=== PATIENT | female | born 1970 ===

== ENCOUNTER 2023-09-03 20:38 | Emergency (ER) | payer BC, SELFPAY ==
[2023-09-03 20:46] VITALS: BP 110/65
[2023-09-03 21:05] LABS: % Basophils 0.9 % (0-2); % Eosinophils 1.3 % (0-6); % Immature Granulocytes 0.2 % (0-0.5); % Monocytes 9.9 % (1.7-9.3); % Neutrophils 43.7 % (42.2-75.2); Absolute Basophils 0.1 10^3/uL (0-0.2); Absolute Eosinophils 0.1 10^3/uL (0-0.7); Absolute Lymphocytes 2.8 10^3/uL (1.2-3.4); Absolute Monocytes 0.6 10^3/uL (0.1-0.6); Absolute Neutrophils 2.8 10^3/uL (1.4-6.5); Hematocrit 36.7 % (37.0-47.0); Mean Corp Hgb Conc. 35.4 g/dL (33.0-37.0); Mean Corpuscular Hgb 32.3 pg (27.0-31.0); Mean Corpuscular Volume 91.1 fL (81.0-99.0); Mean Platelet Volume 10.2 fL (7.4-10.4); Nucleated Red Blood Cells % 0 %; Platelet Count 264 10^3/uL (130-400); Red Blood Cell Count 4.03 10^6/uL (4.20-5.40); Red Cell Dist. Width 13.1 % (11.5-14.5); White Blood Cell Count 6.4 10^3/uL (4.8-10.8)
[2023-09-03 21:06] LABS: Urine Albumin Negative (Neg - Trace); Urine Bilirubin Negative (Negative); Urine Character Clear (Clear); Urine Color Yellow; Urine Glucose Negative (Negative); Urine Ketone Negative (Negative); Urine Leukocyte Negative (Negative); Urine Nitrite Negative (Negative); Urine Occult Blood Negative (Negative); Urine Specific Gravity 1.015 (<1.030); Urine Urobilinogen Negative (Neg - 1+)
[2023-09-03 21:23] LABS: ALT (SGPT) 21 U/L (0-35); AST (SGOT) 30 U/L (14-36); Albumin 4.7 g/dl (3.5-5.0); Alkaline Phosphatase 38 U/L (38-126); Blood Urea Nitrogen 11 mg/dl (7-17); Calcium 10.1 mg/dl (8.4-10.2); Carbon Dioxide 25 mmol/L (22-30); Chloride 101 mmol/L (98-107); Glucose 90 mg/dl (70-99); Potassium 3.7 mmol/L (3.5-5.1); Sodium 135 mmol/L (135-145); Total Bilirubin 0.3 mg/dl (0.2-1.3); Total Protein 7.3 g/dl (6.3-8.2); eGFR > 60.00
[2023-09-03 21:24] LABS: Lipase 131 U/L (23-300)
[2023-09-03] MEDS: LET TOPICAL ANESTHETIC GEL 3 ML TOPICAL (21:44)
--- NOTE | 2023-09-03 22:53 | ED.GENMED ---
History of Present Illness
General
Chief Complaint: Abdominal Pain
Source: patient
Exam Limitations: none
Time Seen by Provider: 09/03/23 22:47
Travel History
Have you had any contact with someone who has COVID-19?: No
Do you have any symptoms of coronavirus? Fever > 100 degrees, chills, cough, shortness of breath, sore throat, loss of taste or smell, muscle aches, or headache?: No
History of Present Illness
History of Present Illness:
See MDM
Past History
Past History
ED Past Medical History: Cancer (Colon)
ED Past Surgical History: Bowel resection
Social History
Tobacco: Non-smoker
Alcohol: None
Phy Exam
Physical Exam
Physical Exam:
See MDM
Course
Orders/Labs/Results
Orders:
Orders
09/03/23 20:52
Electrocardiogram (*1) Urgent
Reason for Study: Abdominal Pain
EKG- Treatment ONCE
IV Insert/Care/Rem.- Treatment PRN
09/03/23 20:56
Complete Blood Count/With Diff Urgent
Comprehensive Metabolic Panel Urgent
Lipase Urgent
Urinalysis Reflex To Culture Urgent
Date Specimen was Collected: 09/03/23
Time Specimen was Collected: 20:52
09/03/23 21:43
Lidocaine/Epinephrine/Tetracai [Let Topical Anesthetic Gel] 3 ml .ROUTE .STK-MED ONE
09/03/23 21:44
Lidocaine/Epinephrine/Tetracai [Let Topical Anesthetic Gel] 3 ml TOPICAL NOW STA
09/03/23 22:52
0.9% Sodium Chloride 1000 ml [Nss] 1,000 ml IV BOLUS
Ketorolac [Toradol] 30 mg IV NOW STA
Lorazepam [Ativan] 0.5 mg IV NOW STA
09/03/23 22:53
CT Abd/pelvis W Iv Cont Urgent
Comment:
Reason For Exam: RLQ pain
09/04/23 00:14
Diphenhydramine [Benadryl] 12.5 mg IV NOW STA
Morphine Sulfate 4 mg IV NOW STA
Abnormal Lab Results
09/03/23
20:56
RBC 4.03 L 10^6/uL
(4.20-5.40)
Hct 36.7 L %
(37.0-47.0)
MCH 32.3 H pg
(27.0-31.0)
Monocytes % 9.9 H %
(1.7-9.3)
09/03/23 20:56
09/03/23 20:56
Vital Signs
Initial and Last Documented VS:
Initial Vital Signs
Temp Pulse Resp BP Pulse Ox
98 F 85 20 110/65 98
09/03/23 20:46 09/03/23 20:46 09/03/23 20:46 09/03/23 20:46 09/03/23 20:46
Last Documented Vital Signs
Temp Pulse Resp BP Pulse Ox
98 F 84 20 114/51 99
09/03/23 20:46 09/04/23 00:28 09/03/23 20:46 09/04/23 00:28 09/04/23 00:28
MDM/Problems Addressed
Differential Diagnosis Includes:
HPI and MDM Narrative:
52-year-old female presenting with 1 week of vague abdominal pain. Sometimes pain is worse with food intake. She believes it is mostly ran she is now noticing that the pain is worse in the right lower quadrant for the past 24 hours. She has a
history of ovarian cyst is different. She is intermittently nauseous
On exam, she is somewhat uncomfortable appearing. She has point tenderness to the right lower quadrant. Will obtain CT
Physical exam
General: Lying in bed but appears somewhat uncomfortable
HEENT: protecting airway
Neck: appears supple
CV: No evidence of cyanosis
Resp: No accessory muscle use
Abd: Non-distended. Point tenderness to right lower quadrant
Extremities: No deformities
Neuro: alert
Psych: Normal affect
Skin: Intact
Problems Addressed including Acute and Chronic Conditions affecting care:
1. Abdominal pain
Acuity: acute
Prognosis: stable
Details: Given the right lower quadrant location, will obtain CT to rule out acute appendicitis
2. Anxiety
Acuity: acute
Prognosis: stable
Details: Patient requesting medicine. Will give Ativan
Updates
CT negative for acute pathology. We discussed possible viral infection. We discussed the incidental findings and return precautions
Differential Diagnosis (but not limited to): Ovarian cyst, acute appendicitis, colitis
Testing considered: Pelvic ultrasound
Drug therapy (if applicable): OTC meds, please see d/c instruction regarding Rx drugs
Amount and/or Complexity of Data Reviewed
Clinical info obtained from: Patient
External data reviewed: N/A
Labs I independently reviewed (but not limited to): White blood cell count normal
Radiology: The CT scan was personally and independently reviewed. In addition, official CT report reviewed.
Pulse Ox: not hypoxic
EKG independently reviewed: N/A
Punch Hand: N/A
Critical Care: N/A
Risk of Complication:
Social Determinants of health: Good social support
Discussed with other providers: N/A
Escalation of Care includes Admit/Obs: After being observed in the Emergency Department, pt stable for discharge.
Occasional wrong word or 'sound a like' substitutions may have occurred due to the inherent limitations of voice recognition software. Read the chart carefully and recognize, using context, where substitutions have occurred.
*Critical Care Note
Total Time (30-74mins, 75-104mins- exclusive of procedures): Not Applicable
ED Attending Note
-
Portions of this chart may have been created with voice recognition software.� Occasional wrong word or��sound alike� substitutions may have occurred due to the inherent limitations of voice recognition software.
Discharge Plan
Departure
Patient Disposition: Home (Routine Discharge)
Date of Disposition: 09/04/23
Time of Disposition: 00:32
Patient with high blood pressure during this ER visit?: No
Discharge Problem:
Abdominal pain
Instructions: Abdominal Pain
Referrals:
Milla Rosales MD [Family Provider] -
Activity Restrictions/Additional Instructions:
Please return for any worsening symptoms.
You may return at any time if you have further concerns.
Please follow up with your doctor at the first available appointment, preferably this week.
Thank you for choosing [facility].
Interventions
Interventions:
*Risk Screen - Suicide Last Done: 09/03/23 20:46
*General Assessment Last Done: 09/03/23 20:46
*Neglect/Abuse Screening Last Done: 09/03/23 20:46
ED- Fall Risk Assessment Last Done: 09/03/23 20:46
*ED COVID-19 Vaccine History Last Done: 09/03/23 20:46
HX-Wwcaii-Blxqcjmqvf Assessment Last Done: 09/03/23 21:56
Discharge Date and Time
Print Language: Monegasque
[2023-09-03] MEDS: ATIVAN 0.5 MG IV (23:02)
[2023-09-03] MEDS: TORADOL 30 MG IV (23:03)
[2023-09-03] MEDS: NSS 1000 IV (23:03)
[2023-09-03 23:06] VITALS: BP 108/54
[2023-09-04] MEDS: BENADRYL 12.5 MG IV (00:24)
[2023-09-04] MEDS: MORPHINE SULFATE 4 MG IV (00:25)
[2023-09-04 00:28] VITALS: BP 114/51
== END 2023-09-04 00:55 | disposition home or self-care (01) ==
LOC: EMR 20:38
PROVIDERS: Emergency Medicine; EMERGENCY PHYSICIAN Student in an Organized Health Care Education/Training Program; FAMILY PHYSICIAN Internal Medicine
DX: R10.9 Unspecified abdominal pain (principal)
CPT/HCPCS: 99285; 96374; 96375 ×3; 96361; 74177; 80053; 81003; 83690; 85025; 93005; 99284; Q9967

== ENCOUNTER 2023-09-10 17:20 | Emergency (ER) | payer BC, SELFPAY ==
[2023-09-10 17:36] VITALS: BP 122/66
[2023-09-10] MEDS: ZOFRAN ODT (ORALLY DISINTEGRATING) 4 MG PO (17:40)
[2023-09-10 18:02] LABS: % Basophils 0.3 % (0-2); % Immature Granulocytes 0.4 % (0-0.5); % Lymphocytes 29.1 % (20.5-51.1); % Monocytes 7.3 % (1.7-9.3); % Neutrophils 61.9 % (42.2-75.2); Absolute Basophils 0.1 10^3/uL (0-0.2); Absolute Eosinophils 0.2 10^3/uL (0-0.7); Absolute Immature Granulocytes 0.1 10^3/uL (0-0.05); Absolute Lymphocytes 5.1 10^3/uL (1.2-3.4); Absolute Monocytes 1.3 10^3/uL (0.1-0.6); Absolute Neutrophils 10.8 10^3/uL (1.4-6.5); Hematocrit 40.5 % (37.0-47.0); Hemoglobin 14.5 g/dL (12.0-16.0); Mean Corp Hgb Conc. 35.8 g/dL (33.0-37.0); Mean Corpuscular Hgb 32.5 pg (27.0-31.0); Mean Corpuscular Volume 90.8 fL (81.0-99.0); Mean Platelet Volume 10.4 fL (7.4-10.4); Nucleated Red Blood Cells % 0 %; Platelet Count 346 10^3/uL (130-400); Red Blood Cell Count 4.46 10^6/uL (4.20-5.40); White Blood Cell Count 17.4 10^3/uL (4.8-10.8)
[2023-09-10 18:13] LABS: HCG, Serum Qualitative Screen Negative
[2023-09-10 18:17] LABS: ALT (SGPT) 21 U/L (0-35); AST (SGOT) 29 U/L (14-36); Albumin 4.8 g/dl (3.5-5.0); Alkaline Phosphatase 55 U/L (38-126); Blood Urea Nitrogen 12 mg/dl (7-17); Calcium 10.7 mg/dl (8.4-10.2); Carbon Dioxide 18 mmol/L (22-30); Chloride 100 mmol/L (98-107); Glucose 111 mg/dl (70-99); Potassium 4.3 mmol/L (3.5-5.1); Sodium 132 mmol/L (135-145); Total Bilirubin 0.6 mg/dl (0.2-1.3); Total Protein 7.4 g/dl (6.3-8.2); eGFR > 60.00
[2023-09-10 18:18] LABS: Lipase 85 U/L (23-300)
--- NOTE | 2023-09-10 23:34 | ED.GENMED ---
History of Present Illness
General
Chief Complaint: Abdominal Pain
Source: patient and family
Exam Limitations: none
Time Seen by Provider: 09/10/23 23:22
Nursing documentation reviewed up to this point in time: agreed with
Travel History
Have you had any contact with someone who has COVID-19?: No
Do you have any symptoms of coronavirus? Fever > 100 degrees, chills, cough, shortness of breath, sore throat, loss of taste or smell, muscle aches, or headache?: No
History of Present Illness
History of Present Illness:
Pleasant 52-year-old female, in tears complaining of abdominal pain that has been progressively worsening for the last 2 weeks. She states that she was seen in the emergency department for similar pain a week ago. She reports that the pain is now
mostly in her upper left abdomen. She denies fever or chills. History is limited as patient is very anxious and as a result of a poor historian
Past History
Past History
ED Past Medical History: Cancer (Colon)
ED Past Surgical History: Bowel resection
Social History
Tobacco: Non-smoker
Alcohol: None
Phy Exam
General Physical Exam
General Presentation: moderate distress
General age: appears stated age
General Skin: warm and dry
General Habitus: normal
General Mental: alert, anxious and tearful
General Hydration: appears well hydrated
Cardiovascular Exam
Cardiovascular Exam: regular rate/rhythm, no edema and no murmur
Pulmonary Exam
Pulmonary Exam: lungs clear and no respiratory distress
Gastrointestinal Exam
Gastrointestinal Exam: normal bowel sounds, non distended and guarding
Palpation: left upper quadrant: Minimal tenderness
Neurological Exam
Neurological Exam: alert and oriented x3
Musculoskeletal Exam
Musculoskeletal Exam: full ROM and no edema
Skin Exam
Skin Exam: normal color and warm/dry
Psychiatric Exam
Psychiatric Exam: agitated and anxious
Course
Orders/Labs/Results
Orders:
Orders
09/10/23 17:38
Test Result ONCE
09/10/23 17:40
Ondansetron Orally Disint [Zofran Odt (Orally Disintegrating)] 4 mg .ROUTE .STK-MED ONE
Ondansetron Orally Disint [Zofran Odt (Orally Disintegrating)] 4 mg PO NOW STA
09/10/23 17:46
Complete Blood Count/With Diff Urgent
Comprehensive Metabolic Panel Urgent
HCG, Serum Qualitative Screen Urgent
Lipase Urgent
09/10/23 23:22
Procalcitonin Urgent
PCT Algorithmm Indication: Sepsis
Troponin I Urgent
Urinalysis Reflex To Culture Urgent
Date Specimen was Collected: 09/11/23
Time Specimen was Collected: 02:21
09/10/23 23:23
EKG- Treatment ONCE
09/10/23 23:29
Mag Hydrox/Al Hydrox/Simeth [Maalox] 30 ml Phenobarb/Hyoscy/Atropine/Scop [] 10 ml Viscous Lidocaine 2% [Xylocaine Viscous Cup] 10 ml PO NOW
09/10/23 23:30
Blood Culture Q30M
MADELINE Source: Blood/Venous
Specimen Description:
Iohexol [Omnipaque] See Protocol PO NOW STA
09/10/23 23:42
Mag Hydrox/Al Hydrox/Simeth [Maalox] 30 ml .ROUTE .STK-MED ONE
Phenobarb/Hyoscy/Atropine/Scop [] 10 ml .ROUTE .STK-MED ONE
09/10/23 23:43
Viscous Lidocaine 2% [Xylocaine Viscous Cup] 15 ml .ROUTE .STK-MED ONE
09/11/23
Electrocardiogram (*1) Stat
Other Reason for Exam: SEPSIS
Comment: DONE
09/11/23 00:00
CT Abd/pel W Iv And Oral Contr Urgent
Reason For Exam: upper abd pain, progressivly worsening over last w
09/11/23 00:06
Lorazepam [Ativan] 1 mg IV NOW STA
09/11/23 01:05
Lactic Acid Q4H
Comment: CANCEL 2nd LACTIC ACID IF 1st LACTIC ACID IS LESS THAN 2
Blood Culture Q30M
MADELINE Source: Blood/Venous
Specimen Description:
Abnormal Lab Results
09/10/23 09/11/23
17:46 02:23
WBC 17.4 H 10^3/uL
(4.8-10.8)
MCH 32.5 H pg
(27.0-31.0)
Abs Immat Gran (auto) 0.1 H 10^3/uL
(0-0.05)
Absolute Neuts (auto) 10.8 H 10^3/uL
(1.4-6.5)
Absolute Lymphs (auto) 5.1 H 10^3/uL
(1.2-3.4)
Absolute Monos (auto) 1.3 H 10^3/uL
(0.1-0.6)
Sodium 132 L mmol/L
(135-145)
Carbon Dioxide 18 L mmol/L
(22-30)
Glucose 111 H mg/dl
(70-99)
Calcium 10.7 H mg/dl
(8.4-10.2)
Urine Ketones 3+ A
(Negative)
09/10/23 17:46
09/10/23 17:46
Vital Signs
Initial and Last Documented VS:
Initial Vital Signs
Temp Pulse Resp BP Pulse Ox
99.0 F 112 18 122/66 97
09/10/23 17:36 09/10/23 17:36 09/10/23 17:36 09/10/23 17:36 09/10/23 17:36
Last Documented Vital Signs
Temp Pulse Resp BP Pulse Ox
99.0 F 79 18 127/78 98
09/10/23 17:36 09/11/23 03:27 09/11/23 03:27 09/11/23 03:27 09/11/23 03:27
*Critical Care Note
Total Time (30-74mins, 75-104mins- exclusive of procedures): Not Applicable
Update Note
Update Note:
CT ABDOMEN/PELVIS WITH CONTRAST
IMPRESSION:
1. Prominent loops of small bowel within the central abdomen may represent underlying enteritis.
2. No bowel obstruction. Normal gallbladder. Moderate to severe stool burden
Incidentals:
- No obstructive uropathy.
- No hepatic or pancreatic mass.
- No abdominal aortic aneurysm.
- No acute osseous abnormality.
- No acute abnormality within the visualized lungs.
- No acute abnormality within the visualized soft tissues.
Case finalized on Sep 11 2023 2:25AM ET
ED Attending Note
-
Portions of this chart may have been created with voice recognition software.� Occasional wrong word or��sound alike� substitutions may have occurred due to the inherent limitations of voice recognition software.
Discharge Plan
Departure
Patient Disposition: Home (Routine Discharge)
Date of Disposition: 09/11/23
Time of Disposition: 03:19
Patient with high blood pressure during this ER visit?: Yes
Condition: Good
Discharge Problem:
Abdominal pain, Enteritis, Constipation
Instructions: Clear Liquid Diet, Constipation, Adult (DC), Abdominal Pain, BLOOD PRESSURE
Referrals:
Milla Rosales MD [Family Provider] -
Activity Restrictions/Additional Instructions:
Please take the MiraLAX as discussed.
It was a pleasure meeting you and taking part in your care. We hope for your continued healing and wellness.
Please read discharge instructions in their entirety. However, they are for general education and may not describe your exact diagnosis at discharge. Information on your ER visit and medical conditions were discussed with you along with appropriate
follow up information...
If indicated, please take your medications as instructed and indicated on discharge paperwork.
Please schedule a follow up appointment as directed. Call to schedule an appointment
Please return to the emergency department with ANY change in, persisting, or worsening of symptoms. If any of your symptoms do not improve, or persist, or become more severe within 6-12 hours, please return to the emergency department for further
care.
Please return to the emergency department if you develop a headache, neck pain/stiffness, fever greater than 100.4F, chest pain, shortness of breath, persistent nausea, vomiting, slurred speech, difficulty walking, numbness/tingling, weakness, signs
of infection or any other symptoms that are worrisome to you.
If you have any questions or concerns please do not hesitate to call the Hospital at or E-mail me directly at [email or web address]
Interventions
Interventions:
*Risk Screen - Suicide Last Done: 09/10/23 17:36
*General Assessment Last Done: 09/10/23 17:36
*Neglect/Abuse Screening Last Done: 09/10/23 17:36
ED- Fall Risk Assessment Last Done: 09/11/23 02:03
*ED COVID-19 Vaccine History Last Done: 09/10/23 17:36
*Nursing Disposition Last Done: 09/11/23 03:28
AP-Sibqyh-Grftarmejs Assessment Last Done: 09/11/23 02:03
Discharge Date and Time
Discharge Date/Time: 09/11/23 03:28
Print Language: Syrian
[2023-09-10] MEDS: MAALOX 40 PO (23:45)
[2023-09-10] MEDS: OMNIPAQUE PO (23:46)
[2023-09-11] MEDS: OMNIPAQUE 50 ML PO (00:04)
[2023-09-11] MEDS: ATIVAN 1 MG IV (01:06)
[2023-09-11 01:10] VITALS: BP 126/63
[2023-09-11 01:40] LABS: Lactic Acid 0.8 mmol/L (0.7-2.0)
[2023-09-11 01:53] LABS: Troponin I < 0.012 ng/ml
[2023-09-11 01:56] LABS: Procalcitonin < 0.05 ng/ml (0.0-0.25)
[2023-09-11 02:34] LABS: Urine Albumin Negative (Neg - Trace); Urine Bilirubin Negative (Negative); Urine Character Clear (Clear); Urine Color Yellow; Urine Glucose Negative (Negative); Urine Ketone 3+ (Negative); Urine Leukocyte Negative (Negative); Urine Nitrite Negative (Negative); Urine Occult Blood Negative (Negative); Urine Specific Gravity 1.015 (<1.030); Urine Urobilinogen Negative (Neg - 1+)
[2023-09-11 03:27] VITALS: BP 127/78
--- NOTE | 2023-09-11 10:28 | W.PN.UPDATE ---
Update Note
Progress Note Update
Pt had CT A/P in ED overnight, prelim report of enteritis no obstruction. In my opinion, partial/early obstruction cannot be excluded based upon the CT. These findings were discussed directly with the patient via phone at 1028 AM 09/11/23. She stated
that she feels slightly better at this time, but still has pain. Advised to return to ED if symptoms worsen over the weekend, if she improves follow up with GI. Pt in agreement.
== END 2023-09-11 03:28 | disposition home or self-care (01) ==
LOC: EMR 17:20
PROVIDERS: Emergency Medicine; EMERGENCY PHYSICIAN Student in an Organized Health Care Education/Training Program; FAMILY PHYSICIAN Internal Medicine
DX: K52.9 Noninfective gastroenteritis and colitis, unspecified (principal); K59.00 Constipation, unspecified; R03.0 Elevated blood-pressure reading, without diagnosis of hypertension
CPT/HCPCS: 99285; 96374; 74177; 80053; 81003; 83605; 83690; 84145; 84484; 84703; 85025; 87040; 93005; Q9967